=== PATIENT | male | born 1975 | race Caucasian/White ===

== ENCOUNTER → 2016-07-05 | Outpatient (CLI) | payer BC ==
[2016-07-05 07:00] LABS: HEMATOCRIT 46.5 % (42.0-52.0); HEMOGLOBIN 15.7 g/dL (14.0-18.0); MEAN CORPUSCULAR HEMOGLOBIN 31.1 PG (27-31); MEAN CORPUSCULAR HGB CONC 33.8 g/dL (33-37); MEAN PLATELET VOLUME 8.2 FL (7.4-12.2); RDW COEFFICIENT OF VARIATION 12.1 % (11.5-14.5); RED BLOOD COUNT 5.05 10^6/uL (4.70-6.10); WHITE BLOOD COUNT 5.43 10^3/uL (4.8-10.8)
[2016-07-05 07:06] LABS: ASPARTATE AMINO TRANSFERASE 36 IU/L (21-57); BILIRUBIN,TOTAL 0.7 mg/dL (0.3-1.2); BLOOD UREA NITROGEN 13 mg/dL (7-22); BUN/CREATININE RATIO 14.44 (6-20); CALCIUM 9.8 mg/dL (8.7-10.7); CHLORIDE 104 meq/L (98-112); CREATININE 0.9 mg/dL (0.70-1.50); EST GLOMERULAR FILTRATION > 60 (>60 ml/min/1.73m(2)); GLUCOSE 105 mg/dL (78-110); HDL CHOLESTEROL 53 mg/dL (40-150); POTASSIUM 4.7 meq/L (3.8-5.2); SODIUM 140 meq/L (135-145); TOTAL PROTEIN 7.9 g/dL (6.1-8.0); TRIGLYCERIDES 122 mg/dL (44-200)
== END ==
LOC: LAB 06:46
PROVIDERS: ATTEND Family Medicine
DX: Z00.00 Encounter for general adult medical examination without abnormal findings (principal); I10 Essential (primary) hypertension; Z72.0 Tobacco use
CPT/HCPCS: 36415; 80053; 80061; 85027